=== PATIENT | male | born 1955 | race Caucasian/White ===

== ENCOUNTER 2016-12-10 21:44 | Emergency (ER) | payer BC, MEDICARE ==
[2016-12-10] MEDS ORDERED: Lidocaine 1% 30 ML SDV INJECT ONE (22:16)
--- NOTE | 2016-12-10 22:18 | EDM.PDOC ---
ED HPI GENERAL MEDICAL PROBLEM - General Chief Complaint: Skin Complaint Stated Complaint: FISH HOOK IN FINGER [id number] Time Seen by Provider: 12/10/16 22:13 Source of Information: Reports: Patient, Family () History Limitations: Reports: No Limitations - History of Present Illness INITIAL COMMENTS - FREE TEXT/NARRATIVE: 61 yo white male c/o clean unused fish hook to left 3rd finger 30 mins. ago. Last Tetnus shot within 10 years Onset: Today Onset Date: 12/10/16 Onset Time: 21:45 Duration: Minutes: Location: Reports: Upper Extremity, Left (3rd finger) Quality: Reports: Sharp Severity: Mild Improves with: Reports: None Worsens with: Reports: None Associated Symptoms: Reports: No Other Symptoms - Related Data Allergies Allergy/AdvReac Type Severity Reaction Status Date / Time acetaminophen [From Vicodin] Allergy Itching Verified 12/10/16 22:21 hydrocodone [From Vicodin] Allergy Itching Verified 12/10/16 22:21 Penicillins Allergy Itching Verified 12/10/16 22:21 ED ROS GENERAL - Review of Systems Review Of Systems: See Below Constitutional: Reports: No Symptoms HEENT: Reports: No Symptoms Respiratory: Reports: No Symptoms Cardiovascular: Reports: No Symptoms Endocrine: Reports: No Symptoms GI/Abdominal: Reports: No Symptoms : Reports: No Symptoms Musculoskeletal: Reports: Hand Pain (;left 3rd finger) Skin: Reports: Wound (fish hook in left 3rd finger) Psychiatric: Reports: No Symptoms Hematologic/Lymphatic: Reports: No Symptoms Immunologic: Reports: No Symptoms ED EXAM, SKIN/RASH Exam: See Below Exam Limited By: No Limitations General Appearance: Alert, WD/WN, No Apparent Distress Eye Exam: Bilateral Eye: PERRL Ears: Normal External Exam Nose: Normal Inspection Throat/Mouth: Normal Inspection Head: Atraumatic Neck: Normal Inspection Respiratory/Chest: No Respiratory Distress Cardiovascular: Normal Peripheral Pulses ED SKIN PROCEDURES - Foreign Body Removal Indication:: fish hook in left third finger Consent Obtained:: Patient Performing Doctor:: Milton Sagastume Anesthesia Type: Local (1% lidocaine w/o epi) Findings:: fish hook removed w/o complication Complications:: No Course - Vital Signs Last Recorded V/S: Last Vital Signs Temp 36.7 C 12/10/16 22:18 Pulse 71 12/10/16 22:18 Resp 18 12/10/16 22:18 BP 149/89 H 12/10/16 22:18 Pulse Ox 96 12/10/16 22:18 - Orders/Labs/Meds Meds: Medications Discontinued Medications Generic Name Dose Route Start Last Admin Trade Name Tess PRN Reason Stop Dose Admin Lidocaine HCl 30 ml 12/10/16 22:16 Xylocaine-Mpf 1% INJECT 12/10/16 22:17 ONETIME ONE Departure - Departure Time of Disposition: 22:33 Disposition: Home, Self-Care 01 Condition: Good Clinical Impression: Horace injury to finger Qualifiers: Encounter type: initial encounter Laterality: left Qualified Code(s): S69.92XA - Unspecified injury of left wrist, hand and finger(s), initial encounter - Discharge Information Forms: ED Department Discharge Additional Instructions: Keep area clean and dry For Pain: Tylenol ES 500mg QID as needed Apply triple antibiotic ointment BID Take the oral antibiotic as prescribed and complete: ZITHROMICIN 250mg QD X 4 F/U w/ PCP
[2016-12-10] MEDS ORDERED: Azithromycin 250 MG Tab PO ONE (22:32)
== END 2016-12-10 22:53 | disposition home or self-care (01) ==
LOC: DL.ED 21:44
DX: S60.453A Superficial foreign body of left middle finger, initial encounter (principal); Z88.0 Allergy status to penicillin; Z88.6 Allergy status to analgesic agent; Z88.5 Allergy status to narcotic agent; W45.0XXA Nail entering through skin, initial encounter
CPT/HCPCS: 99282; A9270